=== PATIENT | female | born 1990 | race Caucasian/White ===

== ENCOUNTER 2020-11-09 13:28 | Emergency (ER) | payer OTHER, SELFPAY ==
--- NOTE | ~2020-11-09 | CT_ITS ---
EXAMINATION: CT INNER EAR TEMPORAL BONES CLINICAL INFORMATION: Mastoid pain and swelling. COMPARISON: None available. TECHNIQUE: Multidetector helical imaging was performed in the axial plane with generation of oblique axial and coronal reformatted projections. DLP: 259 mGy-cm FINDINGS: Right Temporal Bone: No periauricular fluid collection. Mildly prominent lymph nodes within the right parotid gland and deep to the right-sided mastoid muscle, measuring up to 1.2 cm. Moderate circumferential soft tissue thickening of the external auditory canal without associated osseous erosion. Moderate thickening of the tympanic membrane, most notably superiorly. Potential slight blunting of the scutum. Moderate soft tissue/fluid opacification of the middle ear cavity. Exchange completely encompasses the ossicular chain and completely fills the oval window niche. The ossicular chain appears intact without significant deviation or erosions at this time. The anterior aspect of the hypotympanum remains aerated at the entrance of the eustachian tube. Partial opacification of the mastoid antrum. Otherwise, the mastoid air cells largely remain well-aerated. The sigmoid plate is intact. Normal ossification of the bony labyrinth. Normal appearance of the cochlea, vestibule, and semicircular canals. The vestibular aqueduct is normal. Normal appearance of the labyrinthine, geniculate, tympanic, and mastoid segments of the facial nerve. Normal appearance of the internal auditory canal. The cochlear aperture is normal. Normal appearance of the carotid canal and jugular foramen. Left Temporal Bone: The external auditory canal is normal in appearance. The tympanic membrane is normal. The ossicular chain is intact. No soft tissue abnormality within the middle ear. The mastoid antrum and additional mastoid air cells remain well aerated. The sigmoid plate is intact. Normal ossification of the bony labyrinth. Normal appearance of the cochlea, vestibule, and semicircular canals. The vestibular aqueduct is normal. Normal appearance of the labyrinthine, geniculate, tympanic, and mastoid segments of the facial nerve. Normal appearance of the internal auditory canal. The cochlear aperture is normal. Normal appearance of the carotid canal and jugular foramen. Other: The temporomandibular joints are normal in appearance bilaterally. No demonstrated intracranial abnormalities of the visualized skull base. No significant abnormalities of the visualized orbits. The visualized paranasal sinuses are clear. No abnormal contours of the visualized pharynx. CT/CT mastoid IMPRESSION: 1. Moderate circumferential soft tissue thickening of the right-sided external auditory canal and near complete opacification of the right-sided middle ear cavity. This fluid/soft tissue completely encompasses the ossicular chain without demonstrated deviation or erosion. This constellation of findings is suggestive of an ongoing infectious/inflammatory process such as infectious otitis externa/media. 2. The right-sided mastoid air cells are largely clear without evidence of mastoiditis. No periauricular soft tissue collections. Mildly prominent right-sided intraparotid and upper cervical chain lymph nodes. 3. Normal CT of the left-sided temporal bone.
[2020-11-09 14:20] VITALS: BP 140/99; PULSE 90; RESP 18; TEMP 36.9; O2SAT 98; BMI 35.9
--- NOTE | 2020-11-09 15:27 | ED_ITS ---
HPI - Ear Problem General Chief complaint: Ear Problems Stated complaint: ear pain Time Seen by Provider: 11/09/20 15:26 History of Present Illness HPI Narrative: Patient complains of severe right ear pain for several days, she went to another clinic was started on Ciprodex and amoxicillin, no fever no chills no headache no numbness or weakness, pain is described as severe Related Data Previous Rx's Medication Instructions Recorded amoxicillin 875 mg-potassium 1 tab PO Q12H 10 Days #20 tab 11/09/20 clavulanate 125 mg tablet (Augmentin) ibuprofen 600 mg tablet 600 mg PO Q6H PRN #20 tab 11/09/20 oxycodone 5 mg tablet 5 mg PO Q6H PRN #20 tab 11/09/20 Allergies Allergy/AdvReac Type Severity Reaction Status Date / Time No Known Allergies Allergy Verified 11/09/20 14:20 Review of Systems Review of Systems: Positive for right ear pain Negatives are no fever no chills no dizziness or weakness no fainting no feeling faint no headache no neck pain no numbness weakness or tingling no difficulty breathing or swallowing no chest pain no shortness of breath no abdominal pain no nausea or vomiting no skin rash Yes all other systems are reviewed and are negative PMFSH Past Medical History Source: nursing notes reviewed Medical History (Updated 11/10/20 @ 00:03 by Paul Pizano) Ear infection Social History Social History Advance Directives: No Advance Directives Information Provided: Yes Patient : No Physical Exam Vital Signs: Vital Signs: Last Vital Signs Temp 98.3 F 11/09/20 17:00 Pulse 90 11/09/20 17:00 Resp 18 11/09/20 17:00 BP 120/82 11/09/20 17:00 Pulse Ox 99 11/09/20 17:00 Body Mass Index 35.9 General appearance is very uncomfortable due to right ear pain she is holding her ear but is otherwise alert and oriented and otherwise appropriate The ear exam the left ear is normal with normal tympanic membrane and open patent canal with no tenderness or redness The right ear the canal it is almost shot it is swollen there is some mild tenderness in front of and behind the ear but most of the pain seems to be around the ear canal but there is mastoid tenderness, the canal was not visible, pain was worsened by movement of the ear and pressing on the tragus The pharynx was clear without redness swelling or exudate Neck is supple Respiratory no distress Chest clear to auscultation bilateral Extremities full range of motion x4 Skin no rash Neuro no focal deficit Course Course Course Narrative: CT scan to rule out mastoiditis showed moderate circumferential soft tissue thickening of the right auditory canal and near complete opacification of the right side middle ear cavity the findings were valentin ggestive of an ongoing infectious or inflammatory process, there was no evidence of erosion Case was discussed with attending physician vale who advised change antibiotic to Augmentin and placed ear vonnie so I placed an ear wick and advised the patient that this will enable passage of the Ciprodex into the ear canal and hopefully help I also advised she probably needs follow-up with an customer quality specialist and advised her to follow with her primary care doctor for referral MDM - Ear Imaging Data Mastoid CT: Radiologist's impression: The temporomandibular joints are normal in appearance bilaterally. No demonstrated intracranial abnormalities of the visualized skull base. No significant abnormalities of the visualized orbits. The visualized paranasal sinuses are clear. No abnormal contours of the visualized pharynx. CT/CT mastoid IMPRESSION: 1. Moderate circumferential soft tissue thickening of the right-sided external auditory canal and near complete opacification of the right-sided middle ear cavity. ? This fluid/soft tissue completely encompasses the ossicular chain without demonstrated deviation or erosion. This constellation of findings is suggestive of an ongoing infectious/inflammatory process such as infectious otitis externa/media. ? 2. The right-sided mastoid air cells are largely clear without evidence of mastoiditis. No periauricular soft tissue collections. Mildly prominent right-sided intraparotid and upper cervical chain lymph nodes. ? 3. Normal CT of the left-sided temporal bone. Discharge Plan Discharge Clinical Impression: Otitis externa, Otitis media Patient Disposition: Home, Self-Care Additional Instructions: Ultrasound did not show any mastoid infection I placed a wick in the ear to help passage of the ear drops We changed the amoxicillin to Augmentin Follow closely with primary care doctor for a referral to an search specialist Return to the ER any time for any worse condition or any concerns Prescriptions: New amoxicillin-pot clavulanate [Augmentin] 875-125 mg tablet 1 tab PO Q12H 10 Days Qty: 20 RF: 0 ibuprofen 600 mg tablet 600 mg PO Q6H PRN (Reason: pain) Qty: 20 RF: 0 oxycodone 5 mg tablet 5 mg PO Q6H PRN (Reason: pain) Qty: 20 RF: 0 Interventions: ED Discharge Assessment Last Done: 11/09/20 19:43 Discharge Date/Time: 11/09/20 19:44
[2020-11-09 15:49] VITALS: BP 139/79; PULSE 97; RESP 20; TEMP 37.5; O2SAT 99
[2020-11-09] MEDS: LORazepam 1 MG TABLET PO (15:49)
[2020-11-09] MEDS: oxyCODONE HCl Immed Release 5 MG TABLET 10 MG PO (15:49)
[2020-11-09] MEDS: Ketorolac Tromethamine 15 MG/ML VIAL 30 MG IM (15:49)
[2020-11-09 17:00] VITALS: BP 120/82; PULSE 90; RESP 18; TEMP 36.8; O2SAT 99
[2020-11-09] MEDS: Amoxicillin/Potassium Clav 875 MG TABLET PO (19:42)
[2020-11-09] MEDS: oxyCODONE HCl Immed Release 5 MG TABLET PO (19:42)
== END 2020-11-09 19:44 | disposition home or self-care (01) ==
PROVIDERS: Emergency Provider Emergency Medicine; PCP Internal Medicine
DX: H60.91 Unspecified otitis externa, right ear (principal); H66.91 Otitis media, unspecified, right ear
CPT/HCPCS: 70481; 96372; 99283; 99284; J1885